=== PATIENT | male | born 1955 | race Caucasian/White ===

== ENCOUNTER 2020-12-06 13:09 | Inpatient (IN) | payer OTHER, SELFPAY ==
[2020-12-06] MEDS ORDERED: Morphine 2 MG/ML VIAL SLOW IVP PRN (15:54)
[2020-12-06] MEDS ORDERED: hydrALAZINE 20 MG/ML VIAL SLOW IVP PRN (15:54)
[2020-12-06] MEDS ORDERED: Dextrose 5% in Water 1,000 ML IV PRN (15:54)
[2020-12-06] MEDS ORDERED: Ondansetron ODT 4 MG TAB PO PRN (15:54)
[2020-12-06] MEDS ORDERED: traMADol HCl 50 MG TAB PO PRN ×2 (15:54)
[2020-12-06] MEDS ORDERED: Ondansetron PF 4 MG/2 ML Vial IVP PRN (15:54)
[2020-12-06] MEDS ORDERED: Dextrose 50% Abboject 50 ML SYRINGE SLOW IVP PRN (15:54)
[2020-12-06] MEDS ORDERED: Cyclobenzaprine 10 MG TAB PO PRN (15:54)
[2020-12-06] MEDS ORDERED: CEFAZOLIN 2 GM in Premix Bag 1 BAG IVPB SCH (16:45)
[2020-12-06] MEDS ORDERED: Morphine 10 MG/ML VIAL SLOW IVP PRN (17:15)
[2020-12-06 17:30] VITALS: BMI 20.3
[2020-12-06] MEDS: Ibuprofen 200 MG TAB PO SCH ×2 (17:30→23:55)
[2020-12-06] MEDS: Acetaminophen 325 MG TAB PO SCH ×2 (17:30→23:55)
[2020-12-06] MEDS ORDERED: Morphine 4 MG/ML VIAL SLOW IVP PRN (17:45)
[2020-12-06] MEDS: Famotidine 20 MG TAB PO SCH (20:27)
[2020-12-06] MEDS: Sodium Chloride 0.9% 1,000 ML IV SCH (23:55)
[2020-12-07 04:14] LABS: SARS-CoV-2 PCR by NAA Not Detected (NotDetected)
[2020-12-07] MEDS: Acetaminophen 325 MG TAB PO SCH ×3 (05:45→17:31)
[2020-12-07 06:17] LABS: #Eosinphils 0.2 thou/uL (0.0-0.7); #Lymphocytes 1.4 thou/uL (1.20-3.40); #Monocytes 0.6 thou/uL (0.11-0.59); #Neutrophils 5.5 thou/uL (1.40-6.50); %Basophils 0.4 % (0.0-1.0); %Eosinophils 2.4 % (0.0-10.0); %Monocytes 7.9 % (0.0-10.0); %Neutrophils 71.3 % (42.0-75.0); Hemoglobin 12.1 g/dL (14.0-18.0); Mean Corpuscular HGB CONC 32.2 g/dL (32.0-36.0); Mean Corpuscular Hemoglobin 32.7 pg (27.0-31.0); Mean Platelet Volume 9.3 fL (7.4-10.4); Platelet Count 179 thou/uL (130-400); RBC Distribution Width 11.5 % (11.5-14.5); White Blood Cell (WBC) Count 7.8 thou/uL (4.8-10.8)
[2020-12-07 06:38] LABS: Anion Gap 9 mmol/L (10-20); BUN (Urea Nitrogen) 20 mg/dL (8.4-25.7); Calc. Creatinine Clearance 77 mL/min (70-130); Calcium 8.8 mg/dL (7.8-10.44); Carbon Dioxide 25 mmol/L (23-31); Chloride 109 mmol/L (98-107); Glucose 96 mg/dL (80-115); Potassium 4.2 mmol/L (3.5-5.1); Sodium 139 mmol/L (136-145)
[2020-12-07] MEDS: Famotidine 20 MG TAB PO SCH ×2 (09:53→20:56)
[2020-12-07] MEDS: Ibuprofen 200 MG TAB PO SCH ×2 (09:53→17:31)
[2020-12-07] MEDS: Sodium Chloride 0.9% 1,000 ML IV SCH ×2 (09:53→16:49)
[2020-12-07] MEDS ORDERED: Bupivacaine HCl 0.5%/Epinephrine 1:200,000/PF 30 ml Vial ONE (10:25)
[2020-12-07] MEDS ORDERED: CEFAZOLIN 2 GM in Premix Bag 1 BAG IVPB SCH (12:00)
[2020-12-07] MEDS ORDERED: Fentanyl 100 MCG/2 ML VIAL ONE ×3 (12:01→14:32)
[2020-12-07] MEDS ORDERED: Rocuronium Bromide 10 MG/ML (10ML VIAL) ONE (12:15)
[2020-12-07] MEDS ORDERED: PROPOFOL 200 MG/20 ML VIAL ONE (12:15)
[2020-12-07] MEDS ORDERED: ePHEDrine Sulfate 50 MG/10 ML VIAL ONE (12:15)
[2020-12-07] MEDS ORDERED: Ondansetron PF 4 MG/2 ML Vial ONE (12:15)
[2020-12-07] MEDS ORDERED: Lidocaine 1% PF 5 ML VIAL ONE (12:15)
[2020-12-07] MEDS ORDERED: Dexamethasone 20 MG/5 ML VIAL ONE (12:15)
[2020-12-07] MEDS ORDERED: HYDROmorphone 2 MG/ML VIAL ONE (12:59)
[2020-12-07] MEDS ORDERED: SUGAMMADEX SODIUM 200 MG/2 ML VIAL ONE (13:48)
[2020-12-07] MEDS ORDERED: Dexamethasone 4 mg/ml Vial ONE (13:52)
[2020-12-08] MEDS: Sodium Chloride 0.9% 1,000 ML IV SCH ×2 (00:43→10:52)
[2020-12-08] MEDS: Acetaminophen 325 MG TAB PO SCH ×2 (05:42)
[2020-12-08] MEDS: Ibuprofen 200 MG TAB PO SCH ×2 (08:58)
[2020-12-08] MEDS: Famotidine 20 MG TAB PO SCH (08:58)
[2020-12-08 13:25] VITALS: BP 139/98; TEMP 98.7
== END 2020-12-08 10:35 | disposition home or self-care (01) | DRG 494 ==
LOC: SJJU 15:00
PROVIDERS: ADMIT Surgery; ATTEND Surgery
PROC: 0QSJXZZ Reposition Right Fibula, External Approach (ICD-10-PCS; principal; 2020-12-06)
PROC: 0QSG04Z Reposition Right Tibia with Internal Fixation Device, Open Approach (ICD-10-PCS; 2020-12-08)
PROC: 0QPG04Z Removal of Internal Fixation Device from Right Tibia, Open Approach (ICD-10-PCS; 2020-12-08)
DX: S82.201A Unspecified fracture of shaft of right tibia, initial encounter for closed fracture (principal); F17.210 Nicotine dependence, cigarettes, uncomplicated; S82.401A Unspecified fracture of shaft of right fibula, initial encounter for closed fracture; V09.1XXA Pedestrian injured in unspecified nontraffic accident, initial encounter; Z90.49 Acquired absence of other specified parts of digestive tract; Z87.442 Personal history of urinary calculi
CPT/HCPCS: 36415; 76000; 80048; 85025; 87635; C1713; J0690; J1100; J1170; J2270; J2405; J2704; J3010; U0003; U0005

== ENCOUNTER 2021-07-02 16:18 | Outpatient (CLI) | payer SELFPAY ==
[2021-07-03 00:28] LABS: SARS-CoV-2 PCR by NAA Not Detected (NotDetected)
== END 2021-07-02 16:19 | disposition home or self-care (01) ==
LOC: LABBT 16:18
PROVIDERS: ATTEND Orthopaedic Surgery
DX: Z01.812 Encounter for preprocedural laboratory examination (principal); Z20.822 Contact with and (suspected) exposure to COVID-19
CPT/HCPCS: U0003; U0005

== ENCOUNTER 2021-07-05 08:48 | Inpatient (IN) | payer OTHER ==
[2021-07-03 12:44] VITALS: BMI 20.3
[2021-07-05] MEDS ORDERED: Midazolam HCl 2 mg/2 ml Vial ONE (10:34)
[2021-07-05] MEDS ORDERED: Fentanyl 100 MCG/2 ML VIAL ONE ×3 (10:35→13:01)
[2021-07-05] MEDS ORDERED: HYDROmorphone 0.5 MG/0.5 ML SYRINGE ONE (10:36)
[2021-07-05] MEDS ORDERED: Vancomycin 1 GM/200 ML BAG ONE (10:37)
[2021-07-05] MEDS ORDERED: cefTRIAXone\\ROCEPHIN 2 GM VIAL ONE ×2 (10:38→10:41)
[2021-07-05] MEDS ORDERED: Sodium Chloride 0.9% 100 ML ONE ×3 (10:41→10:43)
[2021-07-05] MEDS ORDERED: Famotidine 20 MG TAB ONE (10:42)
[2021-07-05] MEDS ORDERED: PROPOFOL 200 MG/20 ML VIAL ONE (10:52)
[2021-07-05] MEDS ORDERED: ePHEDrine 50 MG/ML VIAL ONE (10:52)
[2021-07-05] MEDS ORDERED: Lidocaine 1% PF 5 ML VIAL ONE (10:52)
[2021-07-05] MEDS ORDERED: Dexamethasone 20 MG/5 ML VIAL ONE (10:52)
[2021-07-05] MEDS ORDERED: Milk Of Magnesia 30 ML UDCUP PO PRN (12:39)
[2021-07-05] MEDS ORDERED: Communication Order-Pharmacy FS SCH (12:39)
[2021-07-05] MEDS ORDERED: traMADol HCl 50 MG TAB PO PRN ×2 (12:39)
[2021-07-05] MEDS ORDERED: Ondansetron PF 4 MG/2 ML Vial IVP PRN (12:39)
[2021-07-05] MEDS ORDERED: Fentanyl 100 MCG/2 ML VIAL SLOW IVP PRN (12:39)
[2021-07-05] MEDS ORDERED: Promethazine HCl 25 MG/ML VIAL IM PRN (12:39)
[2021-07-05] MEDS ORDERED: Bisacodyl 10 MG SUPP PR PRN (12:39)
[2021-07-05] MEDS ORDERED: HYDROcodone/Acetaminophen 5/325 mg Tablet PO PRN (12:39)
[2021-07-05] MEDS ORDERED: Acetaminophen 325 MG TAB PO PRN (12:39)
[2021-07-05] MEDS ORDERED: Ketorolac Tromethamine 30 MG/ML VIAL ONE (12:47)
[2021-07-05] MEDS: Ketorolac Tromethamine 30 MG/ML VIAL IVP SCH ×2 (12:49→17:58)
[2021-07-05] MEDS ORDERED: Morphine 4 MG/ML VIAL SLOW IVP PRN (12:49)
[2021-07-05] MEDS: HYDROcodone/Acetaminophen 5/325 mg Tablet PO PRN ×2 (16:07→20:06)
[2021-07-05] MEDS: Aspirin 81 mg Enteric Coated Tablet PO SCH (20:06)
[2021-07-05] MEDS: Vancomycin 1 GM in Premix Bag 1 BAG IVPB SCH (22:41)
[2021-07-06] MEDS: Ketorolac Tromethamine 30 MG/ML VIAL IVP SCH ×3 (00:07→11:38)
[2021-07-06] MEDS: Aspirin 81 mg Enteric Coated Tablet PO SCH ×2 (09:05→20:13)
[2021-07-06] MEDS: Vancomycin 1 GM in Premix Bag 1 BAG IVPB SCH ×2 (11:37→22:53)
[2021-07-06] MEDS: HYDROcodone/Acetaminophen 5/325 mg Tablet PO PRN ×2 (11:38→20:13)
[2021-07-06] MEDS ORDERED: cefTRIAXone\\ROCEPHIN 2 GM in Sodium Chloride 0.9% 100 ML IVPB SCH (12:00)
[2021-07-07] MEDS: Aspirin 81 mg Enteric Coated Tablet PO SCH ×2 (08:04→20:06)
[2021-07-07] MEDS: HYDROcodone/Acetaminophen 5/325 mg Tablet PO PRN ×2 (08:04→23:40)
[2021-07-07] MEDS: Vancomycin 1 GM in Premix Bag 1 BAG IVPB SCH ×2 (11:47→22:25)
[2021-07-08] MEDS: Aspirin 81 mg Enteric Coated Tablet PO SCH (09:12)
[2021-07-08] MEDS: HYDROcodone/Acetaminophen 5/325 mg Tablet PO PRN (09:12)
[2021-07-08 11:33] VITALS: BP 128/68; TEMP 98.2
== END 2021-07-08 16:04 | disposition home or self-care (01) | DRG 497 ==
LOC: SDC 08:48 → SURG A 12:39
PROVIDERS: ADMIT Orthopaedic Surgery; ATTEND Orthopaedic Surgery
PROC: 0QPG04Z Removal of Internal Fixation Device from Right Tibia, Open Approach (ICD-10-PCS; principal; 2021-07-05)
PROC: 0LBN0ZZ Excision of Right Lower Leg Tendon, Open Approach (ICD-10-PCS; 2021-07-05)
PROC: 0Y9H0ZZ Drainage of Right Lower Leg, Open Approach (ICD-10-PCS; 2021-07-05)
DX: S82.301G Unspecified fracture of lower end of right tibia, subsequent encounter for closed fracture with delayed healing (principal); Z20.822 Contact with and (suspected) exposure to COVID-19; L98.8 Other specified disorders of the skin and subcutaneous tissue; G89.29 Other chronic pain; F32.A Depression, unspecified; F17.200 Nicotine dependence, unspecified, uncomplicated; W19.XXXD Unspecified fall, subsequent encounter; Z98.890 Other specified postprocedural states; Z71.6 Tobacco abuse counseling; Z90.49 Acquired absence of other specified parts of digestive tract; Z79.899 Other long term (current) drug therapy; Z91.041 Radiographic dye allergy status
CPT/HCPCS: 36415; 76000; 80202; 82565; 87070; 87076; 87205; J0696; J1100; J1170; J1885; J2250; J2704; J3010; J3370; J3490

== ENCOUNTER 2021-10-12 17:26 | Outpatient (CLI) | payer SELFPAY ==
[2021-10-12 18:15] LABS: #Basophils 0.1 10x3/uL (0.0-0.2); #Eosinphils 0.2 10x3/uL (0.0-0.5); #Monocytes 0.5 10x3/uL (0.0-1.1); #Neutrophils 4.2 10x3/uL (1.5-8.4); %Basophils 0.9 % (0.0-2.0); %Eosinophils 2.6 % (0.0-6.0); %Lymphocytes 28.6 % (18.0-47.0); %Monocytes 7.5 % (0.0-10.0); %Neutrophils 60.3 % (40.0-75.0); Hemoglobin 13.4 g/dL (13.5-17.5); Mean Corpuscular HGB CONC 32.5 g/dL (32.0-36.0); Mean Corpuscular Volume 98.3 fl (81.2-95.1); Mean Platelet Volume 11.4 fl (7.4-10.4); Platelet Count 230 10x3/uL (150-450); RBC Distribution Width 12.6 % (11.5-14.5); Red Blood Cell (RBC) Count 4.19 10x6/uL (4.32-5.72); White Blood Cell (WBC) Count 6.9 10x3/uL (3.5-10.5)
[2021-10-13 00:52] LABS: SARS-CoV-2 PCR by NAA Not Detected (NotDetected)
== END 2021-10-12 17:27 | disposition home or self-care (01) ==
LOC: LABBT 17:26
PROVIDERS: ATTEND Orthopaedic Surgery
DX: Z01.812 Encounter for preprocedural laboratory examination (principal); S82.301D Unspecified fracture of lower end of right tibia, subsequent encounter for closed fracture with routine healing; Z98.890 Other specified postprocedural states; Z20.822 Contact with and (suspected) exposure to COVID-19
CPT/HCPCS: 85025; U0003; U0005

== ENCOUNTER 2021-10-12 17:45 | Inpatient (IN) | payer OTHER ==
[2021-10-16] MEDS ORDERED: Fentanyl 250 MCG/5 ML VIAL ONE ×2 (10:59→11:58)
[2021-10-16] MEDS ORDERED: ceFAZolin Sodium (SDC) 2 GM/100 ML BAG ONE (11:00)
[2021-10-16] MEDS ORDERED: Ondansetron PF 4 MG/2 ML Vial ONE (11:16)
[2021-10-16] MEDS ORDERED: PROPOFOL 200 MG/20 ML VIAL ONE (11:16)
[2021-10-16] MEDS ORDERED: Lidocaine 1% PF 5 ML VIAL ONE (11:16)
[2021-10-16] MEDS ORDERED: ePHEDrine 50 MG/ML VIAL ONE (11:16)
[2021-10-16] MEDS ORDERED: Dexamethasone 20 MG/5 ML VIAL ONE (11:16)
[2021-10-16] MEDS ORDERED: Ketorolac Tromethamine 30 MG/ML VIAL ONE ×2 (11:16→18:07)
[2021-10-16] MEDS ORDERED: Ondansetron PF 4 MG/2 ML Vial IVP PRN (12:13)
[2021-10-16] MEDS ORDERED: Promethazine HCl 25 MG/ML VIAL IM PRN (12:13)
[2021-10-16] MEDS ORDERED: Fentanyl 100 MCG/2 ML VIAL SLOW IVP PRN (12:13)
[2021-10-16] MEDS ORDERED: Acetaminophen 325 MG TAB PO PRN (12:13)
[2021-10-16] MEDS ORDERED: HYDROcodone/Acetaminophen 5/325 mg Tablet PO PRN ×2 (12:13)
[2021-10-16] MEDS ORDERED: traMADol HCl 50 MG TAB PO PRN ×2 (12:13)
[2021-10-16] MEDS: Ketorolac Tromethamine 30 MG/ML VIAL IVP SCH (18:08)
[2021-10-16] MEDS ORDERED: ceFAZolin 2 GM/Dextrose 50 ML 2 GM in Premix Bag 1 BAG IVPB SCH (19:00)
[2021-10-16 20:52] VITALS: BMI 24.9
[2021-10-16] MEDS: Aspirin 81 mg Enteric Coated Tablet PO SCH (21:04)
[2021-10-16] MEDS: CEFAZOLIN 2 GM, Admixture Fee 1 EACH in Sodium Chloride 0.9% 100 ML IVPB SCH (21:04)
[2021-10-16] MEDS ORDERED: Ibuprofen 200 MG TAB PO SCH (22:00)
[2021-10-17] MEDS: Ketorolac Tromethamine 30 MG/ML VIAL IVP SCH ×3 (00:48→12:10)
[2021-10-17] MEDS: CEFAZOLIN 2 GM, Admixture Fee 1 EACH in Sodium Chloride 0.9% 100 ML IVPB SCH (05:39)
[2021-10-17] MEDS: Aspirin 81 mg Enteric Coated Tablet PO SCH (08:15)
[2021-10-17] MEDS ORDERED: Multivitamin W/ Minerals 1 TAB PO SCH (09:00)
[2021-10-17] MEDS ORDERED: Ascorbic Acid 500 mg Chewable Tablet PO SCH (09:00)
[2021-10-17] MEDS ORDERED: Cholecalciferol 1,000 UNITS (25 MCG) TAB PO SCH (09:00)
[2021-10-17] MEDS ORDERED: Zinc Sulfate 220 MG CAP PO SCH (09:00)
[2021-10-17 16:33] VITALS: BP 150/70; TEMP 97.9
== END 2021-10-17 17:15 | disposition home or self-care (01) | DRG 908 ==
LOC: SURG A 10-16 08:03 → EDSTATUS 10-16 17:45 → SJJU 10-16 18:36
PROVIDERS: ADMIT Orthopaedic Surgery; ATTEND Orthopaedic Surgery
PROC: 0QBL0ZZ Excision of Right Tarsal, Open Approach (ICD-10-PCS; principal; 2021-10-17)
DX: T81.30XA Disruption of wound, unspecified, initial encounter (principal); I96 Gangrene, not elsewhere classified; Z20.822 Contact with and (suspected) exposure to COVID-19; G89.29 Other chronic pain; F32.A Depression, unspecified; G43.909 Migraine, unspecified, not intractable, without status migrainosus; F17.210 Nicotine dependence, cigarettes, uncomplicated; Z79.899 Other long term (current) drug therapy; Z98.890 Other specified postprocedural states; Z90.49 Acquired absence of other specified parts of digestive tract; Z91.041 Radiographic dye allergy status; S82.301D Unspecified fracture of lower end of right tibia, subsequent encounter for closed fracture with routine healing
CPT/HCPCS: J0690; J1100; J1885; J2405; J2704; J3010; J3490